=== PATIENT | female | born 1970 | race Caucasian/White ===

== ENCOUNTER → 2020-11-08 | Outpatient (CLI) | payer OTHER ==
[~2020-11-08] MED LIST: ADDERALL 15 MG15 MG PO; AMITRIPTYLINE100 MG PO; B-COMPLEX-VITA1 EACH PO; B12INJ IM; CRESTOR40 MG PO; KLOR-CON 10 ER10 MEQ PO; KRILL OIL 1,001 EAC1 PO; LOSARTAN-HCTZ1 EAC1 PO; MELOXICAM15 MG PO; MULTIVITAMINS1 EAC7 PO; NORVASC5 MG PO; OMEPRAZOLE 20 M20 M1 PO; VITAMIN D32000 UNIT PO
== END ==
LOC: LAB 07:55
PROVIDERS: ATTEND Anesthesiology
DX: Z01.812 Encounter for preprocedural laboratory examination (principal); Z20.822 Contact with and (suspected) exposure to COVID-19